=== PATIENT | female | born 1970 | race Caucasian/White ===

== ENCOUNTER 2023-02-27 09:43 | Outpatient (AMB) | payer BC, SELFPAY ==
--- NOTE | 2023-02-27 09:50 | MHC.OFFVIS ---
Intake Vital Signs 02/27/23 09:51 Height 5 ft 4 in Weight 180 lb 1.883 oz BMI 30.9 BP 126/88 Blood Pressure Location Rt brachial Position Sitting Pulse 70 Pulse Source Pulse Oximeter Pulse Oximetry (%) 97 Oxygen Delivery Method Room Air Intake Visit Reasons: RA Intake Note: Patient presents for follow up rheumatoid Allergies amoxicillin [From Augmentin] Adverse Reaction (Intermediate, Verified 02/23/23 10:29) Irregular heartbeat clavulanic acid [From Augmentin] Adverse Reaction (Intermediate, Verified 02/23/23 10:29) Irregular heartbeat escitalopram Adverse Reaction (Intermediate, Verified 02/23/23 10:29) Dizziness mirtazapine Adverse Reaction (Intermediate, Verified 02/23/23 10:29) Chest Pain Medication List - Last Reconciled 02/27/23 by Tracey Posadas MD etanercept (Enbrel SureClick) 50 mg subcut QWEEK fluoxetine 40 mg PO DAILY hydrochlorothiazide 25 mg PO DAILY hydroxyzine HCl 25 mg PO BID PRN isosorbide mononitrate ER 30 mg PO DAILY nitroglycerin 0.4 mg sublingual ONCE PRN tizanidine 4 mg PO BEDTIME trazodone 100 mg PO BEDTIME HPI HPI Comments History of Present Illness Details This is a 52-year-old female with seropositive RA who presents as a new patient. 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 She states that she was diagnosed with rheumatoid arthritis around 2009. She was on methotrexate and hydroxychloroquine at some point and she does not recall what happened with those. She has been on Enbrel since 2010 which is effective. Over the last few years patient has been spacing out her Enbrel injections. Currently she uses the Enbrel when she feels like she is having a flare. She uses it once every 3-4 weeks. She denies any history of DVT/PE. She is unaware of any family history of autoimmune rheumatic disease. She cannot think of any side effects related to Enbrel. Today patient states that she feels that her hands and feet are warm to touch. Her last flare was a week ago and she last took Enbrel Sunday of last week. [facility] Medical History Adjustment disorder Essential hypertension Inflammatory polyarthropathy Intervertebral disc disorder of lumbar region with myelopathy Rheumatoid arthritis Surgical History H/O nasal septoplasty History of back surgery Family History Mother Hypertension Stroke, Onset Age: 56 CHF (congestive heart failure) Father Hypertension Maternal Grandfather Myocardial infarction, Onset Age: 47 Family/Other Anxiety Breast cancer Social History Alcohol intake: current Alcohol intake frequency: 0-2 drinks per day Patient Tobacco Use Status: Current someday Tobacco user Female Reproductive History Menstrual Total pregnancies: 4 Number of Living Children: 2 Ab induced: 1 Ab spontaneous: 2 Review of Systems Const Reports fatigue, Reports headache(s) and Reports weakness Eyes Reports dry eyes and Reports itchy eyes ENT Reports headache(s) and Reports tinnitus GI Reports heartburn Musc Reports arthralgias and Reports stiffness Skin/Breast Reports alopecia and Reports unusual bruising Neuro Reports headache(s) and Reports weakness Psych Reports abnormal sleep pattern, Reports anxiety and Reports depression Endo Reports fatigue Aller/Immun Reports itchy eyes Physical Exam Vital Signs: Last Vital Signs Pulse 70 02/27/23 09:51 BP 126/88 02/27/23 09:51 Pulse Ox 97 02/27/23 09:51 Oxygen Delivery Method Room Air 02/27/23 09:51 BMI result Body Mass Index 30.9 Const General: cooperative, healthy appearing and comfortable Nutritional Appearance: overweight Orientation/consciousness: patient oriented x3 Limitations: no limitations HEENT Head: Yes normocephalic and Yes atraumatic Mouth: moist mucous membranes Resp Effort & Inspection: normal respiratory effort and able to speak in complete sentences Auscultation: clear to auscultation bilaterally Cardio Rate: regular rate Rhythm: regular rhythm Heart sounds: S1 normal heart sound present GI Inspection: No distended Palpation (GI): Soft to palpation and nontender Skin General skin exam: no rashes or lesions noted Neuro General: patient oriented x3 Extrem Other: No swollen or tender joints Mild warmth to palpation of both hands. Palmar erythema bilaterally normal range of motion of both elbows and shoulders Normal nailfold capillaroscopy Assessment & Plan Assessment & Plan (1) Rheumatoid arthritis: Comment: +RF+CCP MTX 2010 ineffective HCQ Enbrel 2010 effective Code(s): M06.9 - Rheumatoid arthritis, unspecified Qualifiers: Rheumatoid arthritis location: multiple sites Rheumatoid factor presence: with rheumatoid factor Qualified Code(s): M05.79 - Rheumatoid arthritis with rheumatoid factor of multiple sites without organ or systems involvement Plan: This is a 52-year-old female with seropositive RA who presents as a new patient. 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 Symptoms intermittently controlled on Enbrel every 3-4 weeks. Patient mentions that Enbrel is quite effective when patient uses it. Discussed the importance of disease control. Advised patient to take Enbrel weekly for the next 3 months, will re-evaluate next visit and will consider spacing out the Enbrel to every 10 days or every 2 weeks Labs today. Follow-up in 3 months Plan I spent 45 minutes reviewing patient's chart, evaluating patient, ordering diagnostic workup, counseling patient and documenting in the chart Orders: Orders Comprehensive Met. Panel Today M06.9 - Rheumatoid arthritis, unspecified C Reactive Protein Today M06.9 - Rheumatoid arthritis, unspecified Complete Blood Count Auto Diff Today M06.9 - Rheumatoid arthritis, unspecified Erythrocyte Sedimentation Rate Today M06.9 - Rheumatoid arthritis, unspecified Immunofixation Pnl, Serum Today M06.9 - Rheumatoid arthritis, unspecified Protein Electrophoresis, Serum Today M06.9 - Rheumatoid arthritis, unspecified Hepatitis A,B,C Profile Today Z11.59 - Encounter for screening for other viral diseases T Spot TB Today Z11.7 - Encounter for testing for latent tuberculosis infection Coding Level of Care Code New Pt Level 4 (09055) Diagnoses Rheumatoid arthritis M05.79 Rheumatoid arthritis location: multiple sites Rheumatoid factor presence: with rheumatoid factor
[2023-02-27 09:51] VITALS: BP 126/88; PULSE 70; O2SAT 97; BMI 30.9
== END 2023-02-27 10:31 | disposition home or self-care (01) ==
PROVIDERS: PCP Physician Assistant; Visit Provider Student in an Organized Health Care Education/Training Program
DX: M05.79 Rheumatoid arthritis with rheumatoid factor of multiple sites without organ or systems involvement (principal)
CPT/HCPCS: 99204

== ENCOUNTER → 2023-02-27 09:43 | Outpatient (BNVA) | payer BC, SELFPAY | PROVIDERS: PCP Physician Assistant; Visit Provider Student in an Organized Health Care Education/Training Program ==

== ENCOUNTER 2023-02-27 10:37 | Outpatient (REF) | payer BC, SELFPAY ==
[2023-02-27 13:09] LABS: MANUAL DIFF FLAG NO
[2023-02-27 13:11] LABS: Basophils Absolute Auto 0.1 X10*3/uL (0.0-0.2); Basophils Percent Auto 0.5 % (0-2); Eosinophils Absolute Auto 0.1 X10*3/uL (0.0-0.4); Eosinophils Percent Auto 1.4 % (0-4); Hematocrit 45.3 % (37.0-47.0); Hemoglobin 15.5 g/dl (12.0-16.0); Imm Gran Abs Auto 0.05 X10*3/uL (0.00-0.03); Imm Gran Pct Auto 0.5 % (0.0-0.4); Lymphocytes Absolute Auto 2.7 X10*3/uL (1.2-4.9); Lymphocytes Percent Auto 28.3 % (20-40); Mean Corpuscular HGB Conc 34.2 g/dl (31.0-35.0); Mean Corpuscular Hemoglobin 31.1 pg (27.0-33.0); Mean Corpuscular Volume 90.8 fL (80.0-98.0); Mean Platelet Volume 9.7 fL (9.4-12.3); Monocytes Absolute Auto 0.8 X10*3/uL (0.1-1.2); Monocytes Percent Auto 8.1 % (2-11); Neutrophils Absolute Auto 5.8 x10*3/uL (2.0-8.3); Neutrophils Percent Auto 61.2 % (45-73); Platelet Count 285 X10*3/uL (160-400); Red Blood Count 4.99 X10*6/uL (4.20-5.50); White Blood Count 9.5 X10*3/uL (4.8-10.8)
[2023-02-27 13:26] LABS: Alanine Aminotransferase 24 U/L (0-31); Albumin Level 4.3 g/dL (3.5-5.0); Alkaline Phosphatase 55 U/L (39-117); Anion Gap 12 (12-20); Aspartate Amino Transferase 19 U/L (5-31); Bilirubin Total 0.6 mg/dL (0.0-1.0); Blood Urea Nitrogen 12 mg/dL (9-16); C Reactive Protein 0.94 mg/dL (< or = 0.50); Carbon Dioxide 29 mmol/L (22-29); Chloride 102 mmol/L (96-108); Estimated Glomerular Filt Rate > 60; Glucose Random 91 mg/dL (60-115); Potassium 3.5 mmol/L (3.3-5.1); Sodium 139 mmol/L (135-145); Total Protein 7.7 g/dL (6.5-8.0)
[2023-02-27 13:55] LABS: Erythrocyte Sedimentation Rate 3 MM/HR (0-20)
[2023-02-28 04:07] LABS: HBS Num1 16.74 mIU/mL (0-7.99); HBc Num1 0.08 S/CO (0.00-0.79); HBsAGNum1 0.37 S/CO (0.00-0.99); Hepatitis A Antibody IgM 0.18 Index (0-0.79); Hepatitis B Core Antibody Nonreactive (Nonreactive); Hepatitis B Surface Antigen Negative (Negative); ~HepC Num1 0.17 S/CO (0.00-0.79); ~Hepatitis A Antibody IgM Nonreactive (Nonreactive); ~Hepatitis B Surface Antibody REACTIVE (Nonreactive); ~Hepatitis C Antibody Nonreactive (Nonreactive)
[2023-03-01 11:44] LABS: Prot Elec - Albumin 4.5 g/dL (3.8-4.8); Prot Elec - Alpha1 0.3 g/dL (0.2-0.3); Prot Elec - Alpha2 0.7 g/dL (0.5-0.9); Prot Elec - Beta 1 0.5 g/dL (0.4-0.6); Prot Elec - Beta 2 0.6 g/dL (0.2-0.5); Prot Elec - Total Protein 7.6 g/dL (6.1-8.1)
[2023-03-01 17:03] LABS: IgA 534 mg/dL (47-310); IgG 1047 mg/dL (600-1640); IgM 85 mg/dL (50-300)
[2023-03-01 22:49] LABS: TS Negative Control Passed; TS Panel A 0; TS Panel B 1; TS Positive Control Passed; TSpotTB Negative (Negative)
== END 2023-02-27 10:38 | disposition home or self-care (01) ==
LOC: HO.10HDL 10:37
PROVIDERS: Visit Provider Student in an Organized Health Care Education/Training Program
DX: Z11.59 Encounter for screening for other viral diseases (principal); Z11.7 Encounter for testing for latent tuberculosis infection; M06.9 Rheumatoid arthritis, unspecified; Z72.89 Other problems related to lifestyle
CPT/HCPCS: 36415; 80053; 82784; 84165; 85025; 85652; 86140; 86334; 86481; 86704; 86706; 86709; 86803; 87340

== ENCOUNTER 2023-06-01 09:33 | Outpatient (AMB) | payer BC, SELFPAY ==
[2023-06-01 09:40] VITALS: BP 120/76; PULSE 78; TEMP 36.4; O2SAT 96; BMI 31.9
--- NOTE | 2023-06-01 09:40 | MHC.OFFVIS ---
Intake Vital Signs 06/01/23 09:40 Height 5 ft 4 in Weight 185 lb 10.067 oz BMI 31.9 BP 120/76 Blood Pressure Location Rt brachial Position Sitting Pulse 78 Pulse Source Pulse Oximeter Temp 97.6 F Temp Source Skin Pulse Oximetry (%) 96 Oxygen Delivery Method Room Air Intake Visit Reasons: RA Intake Note: Pt last seen 02/27/23, presents today for follow up and test results. On Enbrel weekly through [facility]. 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 Accompanied by: Self / Same As Patient Allergies amoxicillin [From Augmentin] Adverse Reaction (Intermediate, Verified 06/01/23 09:43) Irregular heartbeat clavulanic acid [From Augmentin] Adverse Reaction (Intermediate, Verified 06/01/23 09:43) Irregular heartbeat escitalopram Adverse Reaction (Intermediate, Verified 06/01/23 09:43) Dizziness mirtazapine Adverse Reaction (Intermediate, Verified 06/01/23 09:43) Chest Pain Medication List - Last Reconciled 06/01/23 by Tracey Posadas MD atorvastatin 10 mg PO DAILY Enbrel SureClick (etanercept) 50 mg subcut QWEEK NS fluoxetine 40 mg PO DAILY hydrochlorothiazide 25 mg PO DAILY hydroxyzine HCl 25 mg PO BID PRN isosorbide mononitrate ER 30 mg PO DAILY nitroglycerin 0.4 mg sublingual ONCE PRN omeprazole 20 mg PO DAILY tizanidine 4 mg PO BEDTIME trazodone 100 mg PO BEDTIME HPI HPI Comments History of Present Illness Details 52-year-old female with seropositive RA returns for follow-up. She states that she has been doing her best to do the Enbrel weekly since last visit as discussed. She states however that last month she had COVID and she stopped using the Enbrel for 3 weeks. She recovered well. Patient states that she has had bilateral hip bursitis for years. She would receive steroid injections every 6 months to [address] Keen for years. Her most recent injection was more than a year ago. She stated that physical therapy was tried and was not helpful. She states that her hip bursitis is acting up and she would like an injection today in both hips. She has pain and stiffness in both heels, especially in the morning. She is doing well otherwise Initial history: This is a 52-year-old female with seropositive RA who presents as a new patient. 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 She states that she was diagnosed with rheumatoid arthritis around 2009. She was on methotrexate and hydroxychloroquine at some point and she does not recall what happened with those. She has been on Enbrel since 2010 which is effective. Over the last few years patient has been spacing out her Enbrel injections. Currently she uses the Enbrel when she feels like she is having a flare. She uses it once every 3-4 weeks. She denies any history of DVT/PE. She is unaware of any family history of autoimmune rheumatic disease. She cannot think of any side effects related to Enbrel. Today patient states that she feels that her hands and feet are warm to touch. Her last flare was a week ago and she last took Enbrel Sunday of last week. [facility] Medical History Greater trochanteric bursitis of both hips Adjustment disorder Essential hypertension Intervertebral disc disorder of lumbar region with myelopathy Inflammatory polyarthropathy Rheumatoid arthritis Surgical History History of back surgery H/O nasal septoplasty Family History Mother Hypertension Stroke, Onset Age: 56 CHF (congestive heart failure) Father Hypertension Maternal Grandfather Myocardial infarction, Onset Age: 47 Family/Other Anxiety Breast cancer Social History Alcohol intake: current Alcohol intake frequency: 0-2 drinks per day Patient Tobacco Use Status: Current someday Tobacco user [place] [facility] [place]ralgias, Denies joint swelling and Reports stiffness Physical Exam Vital Signs: Last Vital Signs Temp 97.6 F 06/01/23 09:40 Pulse 78 06/01/23 09:40 BP 120/76 06/01/23 09:40 Pulse Ox 96 06/01/23 09:40 Oxygen Delivery Method Room Air 06/01/23 09:40 BMI result Body Mass Index 31.9 Const General: cooperative, healthy appearing and comfortable Nutritional Appearance: overweight Orientation/consciousness: patient oriented x3 Limitations: no limitations HEENT Head: Yes normocephalic and Yes atraumatic Resp Effort & Inspection: normal respiratory effort and able to speak in complete sentences Auscultation: clear to auscultation bilaterally Cardio Rate: regular rate Rhythm: regular rhythm Heart sounds: S1 normal heart sound present GI Inspection: No distended Palpation (GI): Soft to palpation and nontender Skin General skin exam: no rashes or lesions noted Neuro General: patient oriented x3 Extrem Other: No swollen or tender joints Mild warmth to palpation of both hands. Palmar erythema bilaterally that blanches with pressure, normal range of motion of both elbows and shoulders Bilateral hip trochanteric bursa area tenderness with negative Mynor's test Normal nailfold capillaroscopy Office Procedures Joint Injection/Drain Joint Injection/Drain Details: Bilateral hip trochanteric bursa Injected: 40 mg of, Kenalog and other (2 mL of 1% lidocaine) Approach Used: other Procedure: The patient tolerated the procedure well and but had some pain with the injection Coding Details: With the patient's consent, the left lateral hip area was prepped with for Chloraprep and alcohol. Under a topical ethyl chloride spray the tender area over the trochanteric region was injected with 40 mg of Kenalog and 2 cc of 1% lidocaine. The patient tolerated the procedure with no adverse effects With the patient's consent, the right lateral hip area was prepped with for Chloraprep and alcohol. Under a topical ethyl chloride spray the tender area over the trochanteric region was injected with 40 mg of Kenalog and 2 cc of 1% lidocaine. The patient tolerated the procedure with no adverse effects CANDELARIO Maza was present in the room & assisting me for both procedures - Glenohumeral/Tronchanteric Bursa/Intraarticular (X2) Procedure code (CPT) selection complete Assessment & Plan Assessment & Plan (1) Rheumatoid arthritis: Comment: +RF+CCP MTX 2010 ineffective HCQ Enbrel 2010 effective Code(s): M06.9 - Rheumatoid arthritis, unspecified Qualifiers: Rheumatoid arthritis location: multiple sites Rheumatoid factor presence: with rheumatoid factor Qualified Code(s): M05.79 - Rheumatoid arthritis with rheumatoid factor of multiple sites without organ or systems involvement Plan: This is a 52-year-old female with seropositive RA who presents as a new patient. 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 Over the last 3 months patient has been doing Enbrel once weekly as discussed last visit. There is no active synovitis on exam today. Will check labs to evaluate disease activity. Labs today. Follow-up in 3 months (2) Greater trochanteric bursitis of both hips: Code(s): M70.61 - Trochanteric bursitis, right hip; M70.62 - Trochanteric bursitis, left hip Plan: Patient stated that she used to receive bilateral hip bursitis injections for years by Dr. Keen, usually every 6 months to 1 year. With patient's consent, both hips were injected with Kenalog today. Advised patient that she might not receive long lasting relief as much as she used to in the past. Advised patient to start doing home exercises for greater trochanteric bare syndrome as soon as she feels some relief. Plan I spent 35 minutes reviewing patient's chart, evaluating patient, ordering diagnostic workup, counseling patient and documenting in the chart Orders: Orders AMB Joint Injection/Aspiration Today M70.61 - Trochanteric bursitis, right hip, M70.62 - Trochanteric bursitis, left hip Complete Blood Count Auto Diff Today M06.9 - Rheumatoid arthritis, unspecified C Reactive Protein Today M06.9 - Rheumatoid arthritis, unspecified Immunofixation Pnl, Serum Today M06.9 - Rheumatoid arthritis, unspecified Protein Electrophoresis, Serum Today M06.9 - Rheumatoid arthritis, unspecified Comprehensive Met. Panel Today M06.9 - Rheumatoid arthritis, unspecified Erythrocyte Sedimentation Rate Today M06.9 - Rheumatoid arthritis, unspecified Coding Level of Care Code Est Pt Level 4 (78855) Diagnoses Rheumatoid arthritis involving multiple sites with positive rheumatoid factor M05.79 Rheumatoid arthritis location: multiple sites Rheumatoid factor presence: with rheumatoid factor Greater trochanteric bursitis of both hips M70.61; M70.62 CPT Codes Coding - Joint 7: 55488 - Glenohumeral/Tronchanteric Bursa/Intraarticular ([id number])
== END 2023-06-01 10:16 | disposition home or self-care (01) ==
PROVIDERS: PCP Physician Assistant; Visit Provider Student in an Organized Health Care Education/Training Program
DX: M05.79 Rheumatoid arthritis with rheumatoid factor of multiple sites without organ or systems involvement (principal); M70.61 Trochanteric bursitis, right hip; M70.62 Trochanteric bursitis, left hip
CPT/HCPCS: 20610; 99214

== ENCOUNTER → 2023-06-01 09:33 | Outpatient (BNVA) | payer BC, SELFPAY | PROVIDERS: PCP Physician Assistant; Visit Provider Student in an Organized Health Care Education/Training Program | DX: M05.79 Rheumatoid arthritis with rheumatoid factor of multiple sites without organ or systems involvement (principal); M70.61 Trochanteric bursitis, right hip; M70.62 Trochanteric bursitis, left hip | CPT/HCPCS: 20610 ==

== ENCOUNTER 2023-06-01 10:21 | Outpatient (REF) | payer BC, SELFPAY ==
[2023-06-01 13:22] LABS: MANUAL DIFF FLAG NO
[2023-06-01 13:39] LABS: Basophils Percent Auto 0.4 % (0-2); Eosinophils Absolute Auto 0.1 X10*3/uL (0.0-0.4); Eosinophils Percent Auto 1.2 % (0-4); Hematocrit 44.3 % (37.0-47.0); Hemoglobin 14.9 g/dl (12.0-16.0); Imm Gran Abs Auto 0.03 X10*3/uL (0.00-0.03); Imm Gran Pct Auto 0.3 % (0.0-0.4); Lymphocytes Absolute Auto 2.4 X10*3/uL (1.2-4.9); Mean Corpuscular HGB Conc 33.6 g/dl (31.0-35.0); Mean Corpuscular Hemoglobin 30.4 pg (27.0-33.0); Mean Corpuscular Volume 90.4 fL (80.0-98.0); Mean Platelet Volume 9.7 fL (9.4-12.3); Monocytes Absolute Auto 0.8 X10*3/uL (0.1-1.2); Monocytes Percent Auto 8.4 % (2-11); Neutrophils Absolute Auto 5.8 x10*3/uL (2.0-8.3); Neutrophils Percent Auto 63.7 % (45-73); Platelet Count 296 X10*3/uL (160-400); White Blood Count 9.1 X10*3/uL (4.8-10.8)
[2023-06-01 14:13] LABS: Erythrocyte Sedimentation Rate 7 MM/HR (0-20)
[2023-06-01 14:21] LABS: Alanine Aminotransferase 23 U/L (0-31); Albumin Level 4.4 g/dL (3.5-5.0); Alkaline Phosphatase 50 U/L (39-117); Anion Gap 13 (12-20); Aspartate Amino Transferase 20 U/L (5-31); Bilirubin Total 0.9 mg/dL (0.0-1.0); Blood Urea Nitrogen 11 mg/dL (9-16); C Reactive Protein 0.41 mg/dL (< or = 0.50); Calcium 9.3 mg/dL (8.4-10.2); Carbon Dioxide 29 mmol/L (22-29); Chloride 102 mmol/L (96-108); Estimated Glomerular Filt Rate > 60; Glucose Random 96 mg/dL (60-115); Potassium 3.5 mmol/L (3.3-5.1); Sodium 140 mmol/L (135-145); Total Protein 7.5 g/dL (6.5-8.0)
[2023-06-04 14:42] LABS: IgA 479 mg/dL (47-310); IgG 1033 mg/dL (600-1640); IgM 72 mg/dL (50-300)
[2023-06-04 17:48] LABS: Prot Elec - Albumin 4.3 g/dL (3.8-4.8); Prot Elec - Alpha1 0.3 g/dL (0.2-0.3); Prot Elec - Alpha2 0.7 g/dL (0.5-0.9); Prot Elec - Beta 1 0.5 g/dL (0.4-0.6); Prot Elec - Beta 2 0.5 g/dL (0.2-0.5); Prot Elec - Gamma 0.9 g/dL (0.8-1.7); Prot Elec - Total Protein 7.2 g/dL (6.1-8.1)
== END 2023-06-01 10:22 | disposition home or self-care (01) ==
LOC: HO.10HDL 10:21
PROVIDERS: Visit Provider Student in an Organized Health Care Education/Training Program
DX: M06.9 Rheumatoid arthritis, unspecified (principal)
CPT/HCPCS: 36415; 80053; 82784; 84165; 85025; 85652; 86140; 86334

== ENCOUNTER 2023-09-04 13:06 | Outpatient (AMB) | payer BC, SELFPAY ==
--- NOTE | 2023-09-04 13:26 | MHC.OFFVIS ---
Intake Vital Signs 09/04/23 13:29 Height 5 ft 4 in Weight 190 lb 14.725 oz BMI 32.8 BP 116/74 Blood Pressure Location Lt brachial Position Sitting Pulse 90 Pulse Source Pulse Oximeter Temp 97.2 F Temp Source Skin Intake Visit Reasons: RA Intake Note: Patient last seen 06/01/23 presents today for follow up. Reports she broke toe on left foot some time in June. Has been experiencing more right hip pain since then. 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 Accompanied by: Self / Same As Patient Allergies amoxicillin [From Augmentin] Adverse Reaction (Intermediate, Verified 06/01/23 09:43) Irregular heartbeat clavulanic acid [From Augmentin] Adverse Reaction (Intermediate, Verified 06/01/23 09:43) Irregular heartbeat escitalopram Adverse Reaction (Intermediate, Verified 06/01/23 09:43) Dizziness mirtazapine Adverse Reaction (Intermediate, Verified 06/01/23 09:43) Chest Pain Medication List - Last Reconciled 09/04/23 by Tracey Posadas MD atorvastatin 10 mg PO DAILY Enbrel SureClick (etanercept) 50 mg subcut QWEEK NS fluoxetine 40 mg PO DAILY hydrochlorothiazide 25 mg PO DAILY hydroxyzine HCl 25 mg PO BID PRN isosorbide mononitrate ER 30 mg PO DAILY nitroglycerin 0.4 mg sublingual ONCE PRN omeprazole 20 mg PO DAILY tizanidine 4 mg PO BEDTIME trazodone 100 mg PO BEDTIME HPI HPI Comments History of Present Illness Details 52-year-old female with seropositive RA returns for follow-up. Patient received bilateral hip trochanteric bursa steroid injections last visit with significant improvement, however on June 24, she missed a step and injured her left foot. She found that she fractured her left foot. It was treated conservatively. She was recently evaluated by her orthopedist and was told that it continues to heal. Her hip pain has been getting worse, especially on the right as she is compensating while she is walking. She is requesting bilateral hip cortisone injections. She also states that she has not been using her Enbrel regularly as she was worried about interference with bone healing. Initial history: This is a 52-year-old female with seropositive RA who presents as a new patient. 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 She states that she was diagnosed with rheumatoid arthritis around 2009. She was on methotrexate and hydroxychloroquine at some point and she does not recall what happened with those. She has been on Enbrel since 2010 which is effective. Over the last few years patient has been spacing out her Enbrel injections. Currently she uses the Enbrel when she feels like she is having a flare. She uses it once every 3-4 weeks. She denies any history of DVT/PE. She is unaware of any family history of autoimmune rheumatic disease. She cannot think of any side effects related to Enbrel. Today patient states that she feels that her hands and feet are warm to touch. Her last flare was a week ago and she last took Enbrel Sunday of last week. [facility] Medical History Greater trochanteric bursitis of both hips Adjustment disorder Essential hypertension Intervertebral disc disorder of lumbar region with myelopathy Inflammatory polyarthropathy Rheumatoid arthritis Surgical History History of back surgery H/O nasal septoplasty Family History Mother Hypertension Stroke, Onset Age: 56 CHF (congestive heart failure) Father Hypertension Maternal Grandfather Myocardial infarction, Onset Age: 47 Family/Other Anxiety Breast cancer Social History Alcohol intake: current Alcohol intake frequency: 0-2 drinks per day Patient Tobacco Use Status: Current someday Tobacco user Review of Systems [facility] [place] Reports arthralgias, Denies joint swelling and Reports stiffness Physical Exam Vital Signs: Last Vital Signs Temp 97.2 F 09/04/23 13:29 Pulse 90 09/04/23 13:29 BP 116/74 09/04/23 13:29 BMI result Body Mass Index 32.8 Const General: cooperative, healthy appearing and comfortable Nutritional Appearance: overweight Orientation/consciousness: patient oriented x3 Limitations: no limitations HEENT Head: Yes normocephalic and Yes atraumatic Resp Effort & Inspection: normal respiratory effort and able to speak in complete sentences Auscultation: clear to auscultation bilaterally Cardio Rate: regular rate Rhythm: regular rhythm Heart sounds: S1 normal heart sound present GI Inspection: No distended Palpation (GI): Soft to palpation and nontender Skin General skin exam: no rashes or lesions noted Neuro General: patient oriented x3 Extrem Other: No swollen or tender joints Left wrist pain with full flexion Bilateral hip trochanteric bursa area tenderness with negative Mynor's test Normal nailfold capillaroscopy Office Procedures Joint Injection/Drain Joint Injection/Drain Details: Right trochanteric bursa Left trochanteric bursa Prep: site was prepped using sterile technique and ethochloride spray was applied Injected: 40 mg of, Kenalog and other (2 mL of 1% lidocaine) Approach Used: other Procedure: The patient tolerated the procedure well Coding Details: With the patient's consent, the right lateral hip area was prepped with for Chloraprep and alcohol. Under a topical ethyl chloride spray the tender area over the trochanteric region was injected with 40 mg of Kenalog and 2 cc of 1% lidocaine. The patient tolerated the procedure with no adverse effects Then, the left lateral hip area was prepped with for Chloraprep and alcohol. Under a topical ethyl chloride spray the tender area over the trochanteric region was injected with 40 mg of Kenalog and 2 cc of 1% lidocaine. The patient tolerated the procedure with no adverse effects - Glenohumeral/Tronchanteric Bursa/Intraarticular Procedure code (CPT) selection complete (Trochanteric bursa injection X 2) Assessment & Plan Assessment & Plan (1) Rheumatoid arthritis: Comment: +RF+CCP MTX 2009 ineffective HCQ Enbrel 2010 effective Code(s): M06.9 - Rheumatoid arthritis, unspecified Qualifiers: Rheumatoid arthritis location: multiple sites Rheumatoid factor presence: with rheumatoid factor Qualified Code(s): M05.79 - Rheumatoid arthritis with rheumatoid factor of multiple sites without organ or systems involvement Plan: This is a 52-year-old female with seropositive RA who presents for follow-up. Having minor flares as she was not using Enbrel regularly worried about fracture healing. Advised patient to use her Enbrel regularly once weekly Labs before next visit in 4 months (2) Greater trochanteric bursitis of both hips: Code(s): M70.61 - Trochanteric bursitis, right hip; M70.62 - Trochanteric bursitis, left hip Plan: With patient's consent, bilateral hip trochanteric bursae were injected with Kenalog today Plan I spent 25 minutes reviewing patient's chart, evaluating patient, ordering diagnostic workup, counseling patient and documenting in the chart Orders: Orders C Reactive Protein 4 Months M06.9 - Rheumatoid arthritis, unspecified Erythrocyte Sedimentation Rate 4 Months M06.9 - Rheumatoid arthritis, unspecified AMB Joint Injection/Aspiration Today M70.61 - Trochanteric bursitis, right hip, M70.62 - Trochanteric bursitis, left hip Complete Blood Count Auto Diff 4 Months M06.9 - Rheumatoid arthritis, unspecified Comprehensive Met. Panel 4 Months M06.9 - Rheumatoid arthritis, unspecified Coding Level of Care Code Est Pt Level 4 (21574) Diagnoses Rheumatoid arthritis involving multiple sites with positive rheumatoid factor M05.79 Rheumatoid arthritis location: multiple sites Rheumatoid factor presence: with rheumatoid factor Greater trochanteric bursitis of both hips M70.61; M70.62 CPT Codes Coding - Joint 7: 14718 - Glenohumeral/Tronchanteric Bursa/Intraarticular ([id number])
[2023-09-04 13:29] VITALS: BP 116/74; PULSE 90; TEMP 36.2; BMI 32.8
== END 2023-09-04 14:07 | disposition home or self-care (01) ==
LOC: HO.RHE 13:06
PROVIDERS: PCP Physician Assistant; Visit Provider Student in an Organized Health Care Education/Training Program
DX: M05.79 Rheumatoid arthritis with rheumatoid factor of multiple sites without organ or systems involvement (principal); M70.61 Trochanteric bursitis, right hip; M70.62 Trochanteric bursitis, left hip
CPT/HCPCS: 20610; 99214

== ENCOUNTER → 2023-09-04 13:06 | Outpatient (BNVA) | payer BC, SELFPAY | PROVIDERS: PCP Physician Assistant; Visit Provider Student in an Organized Health Care Education/Training Program | DX: M05.79 Rheumatoid arthritis with rheumatoid factor of multiple sites without organ or systems involvement (principal); M70.61 Trochanteric bursitis, right hip; M70.62 Trochanteric bursitis, left hip | CPT/HCPCS: 20610; J3301 ==

== ENCOUNTER 2024-01-02 12:22 | Outpatient (REF) | payer BC, SELFPAY ==
[2024-01-02 13:23] LABS: MANUAL DIFF FLAG NO
[2024-01-02 13:47] LABS: Basophils Absolute Auto 0.1 X10*3/uL (0.0-0.2); Basophils Percent Auto 0.5 % (0-2); Eosinophils Absolute Auto 0.1 X10*3/uL (0.0-0.4); Hematocrit 43.6 % (37.0-47.0); Hemoglobin 14.6 g/dl (12.0-16.0); Imm Gran Abs Auto 0.05 X10*3/uL (0.00-0.03); Imm Gran Pct Auto 0.5 % (0.0-0.4); Lymphocytes Absolute Auto 2.6 X10*3/uL (1.2-4.9); Lymphocytes Percent Auto 27.8 % (20-40); Mean Corpuscular HGB Conc 33.5 g/dl (31.0-35.0); Mean Corpuscular Hemoglobin 30.9 pg (27.0-33.0); Mean Corpuscular Volume 92.2 fL (80.0-98.0); Mean Platelet Volume 9.7 fL (9.4-12.3); Monocytes Absolute Auto 0.8 X10*3/uL (0.1-1.2); Monocytes Percent Auto 8.9 % (2-11); Neutrophils Absolute Auto 5.8 x10*3/uL (2.0-8.3); Neutrophils Percent Auto 61.3 % (45-73); Platelet Count 279 X10*3/uL (160-400); Red Blood Count 4.73 X10*6/uL (4.20-5.50); Red Cell Distribution Width 13.3 % (11.0-16.0); White Blood Count 9.5 X10*3/uL (4.8-10.8)
[2024-01-02 14:00] LABS: Alanine Aminotransferase 32 U/L (0-31); Albumin Level 4.3 g/dL (3.5-5.0); Alkaline Phosphatase 57 U/L (39-117); Anion Gap 10 (12-20); Aspartate Amino Transferase 21 U/L (5-31); Bilirubin Total 0.3 mg/dL (0.0-1.0); Blood Urea Nitrogen 12 mg/dL (9-16); Calcium 9.7 mg/dL (8.4-10.2); Carbon Dioxide 31 mmol/L (22-29); Chloride 102 mmol/L (96-108); Estimated Glomerular Filt Rate > 60; Glucose Random 93 mg/dL (60-115); Potassium 3.9 mmol/L (3.3-5.1); Sodium 139 mmol/L (135-145); Total Protein 7.3 g/dL (6.5-8.0)
[2024-01-02 14:56] LABS: Erythrocyte Sedimentation Rate 6 MM/HR (0-20)
== END 2024-01-02 12:23 | disposition home or self-care (01) ==
LOC: HO.10HDL 12:22
PROVIDERS: Visit Provider Student in an Organized Health Care Education/Training Program
DX: M05.79 Rheumatoid arthritis with rheumatoid factor of multiple sites without organ or systems involvement (principal); M70.61 Trochanteric bursitis, right hip; M70.62 Trochanteric bursitis, left hip; Z79.620 Long term (current) use of immunosuppressive biologic
CPT/HCPCS: 20610; 36415; 80053; 85025; 85652; 86140; J3301

== ENCOUNTER 2024-01-02 12:29 | Outpatient (AMB) | payer BC, SELFPAY ==
--- NOTE | 2024-01-02 12:44 | A.OFFVIS_ITS ---
Vital Signs 01/02/24 12:50 Height 5 ft 4 in Weight 188 lb 14.978 oz BMI 32.4 BP 130/74 Blood Pressure Location Rt brachial Position Sitting Pulse 80 Pulse Source Pulse Oximeter Pulse Oximetry (%) 97 Oxygen Delivery Method Room Air Intake Visit Reasons: RA/CM Intake Note: Patient last seen 09/04/23 presents today for follow up and test results. Right hip pain, would like injection. Oxygen System Tester Required: No Accompanied by: Significant Other Allergies amoxicillin [From Augmentin] Adverse Reaction (Intermediate, Verified 01/02/24 12:51) Irregular heartbeat clavulanic acid [From Augmentin] Adverse Reaction (Intermediate, Verified 01/02/24 12:51) Irregular heartbeat escitalopram Adverse Reaction (Intermediate, Verified 01/02/24 12:51) Dizziness mirtazapine Adverse Reaction (Intermediate, Verified 01/02/24 12:51) Chest Pain Medication List - Last Reconciled 01/02/24 by Tracey Posadas MD atorvastatin 10 mg PO DAILY Enbrel SureClick (etanercept) 50 mg subcut QWEEK NS fluoxetine 40 mg PO DAILY hydrochlorothiazide 25 mg PO DAILY hydroxyzine HCl 25 mg PO BID PRN isosorbide mononitrate ER 30 mg PO DAILY nitroglycerin 0.4 mg sublingual ONCE PRN omeprazole 20 mg PO DAILY tizanidine 4 mg PO BEDTIME trazodone 100 mg PO BEDTIME HPI Comments Details: 52-year-old female with seropositive RA returns for follow-up. She remains on Enbrel but she does not take it regularly weekly as prescribed. She does 2 injections a month. She states that she has been having more aching on her ribs laterally, she has also been having pain outer aspect of both hips. She is requesting bilateral hip steroid injections. She has been trying to lose weight but has not been successful. Initial history: This is a 52-year-old female with seropositive RA who presents as a new patient. 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 She states that she was diagnosed with rheumatoid arthritis around 2009. She was on methotrexate and hydroxychloroquine at some point and she does not recall what happened with those. She has been on Enbrel since 2010 which is effective. Over the last few years patient has been spacing out her Enbrel injections. Currently she uses the Enbrel when she feels like she is having a flare. She uses it once every 3-4 weeks. She denies any history of DVT/PE. She is unaware of any family history of autoimmune rheumatic disease. She cannot think of any side effects related to Enbrel. Today patient states that she feels that her hands and feet are warm to touch. Her last flare was a week ago and she last took Enbrel Sunday of last week. [facility] Medical History Greater trochanteric bursitis of both hips Adjustment disorder Essential hypertension Intervertebral disc disorder of lumbar region with myelopathy Inflammatory polyarthropathy Rheumatoid arthritis Surgical History History of back surgery H/O nasal septoplasty Family History Mother Hypertension Stroke, Onset Age: 56 CHF (congestive heart failure) Father Hypertension Maternal Grandfather Myocardial infarction, Onset Age: 47 Family/Other Anxiety Breast cancer Social History Alcohol intake: current Alcohol intake frequency: 0-2 drinks per day Patient Tobacco Use Status: Current someday Tobacco user Female Reproductive History Menstrual Total pregnancies: 4 Number of Living Children: 2 Ab induced: 1 Ab spontaneous: 2 Review of Systems Musc Reports arthralgias, Denies joint swelling and Reports stiffness Physical Exam Vital Signs: Last Vital Signs Pulse 80 01/02/24 12:50 BP 130/74 01/02/24 12:50 Pulse Ox 97 01/02/24 12:50 Oxygen Delivery Method Room Air 01/02/24 12:50 BMI result Body Mass Index 32.4 Const General: cooperative, healthy appearing and comfortable Nutritional Appearance: overweight Orientation/consciousness: patient oriented x3 Limitations: no limitations HEENT Head: Yes normocephalic and Yes atraumatic Resp Effort & Inspection: normal respiratory effort and able to speak in complete sentences Auscultation: clear to auscultation bilaterally Cardio Rate: regular rate Rhythm: regular rhythm Heart sounds: S1 normal heart sound present GI Inspection: No distended Palpation (GI): Soft to palpation and nontender Skin General skin exam: no rashes or lesions noted Neuro General: patient oriented x3 Extrem Other: No swollen or tender joints Left wrist pain with full flexion Bilateral hip trochanteric bursa area tenderness with negative Mynor's test Normal nailfold capillaroscopy Office Procedures Joint Injection/Drain Joint Injection/Drain Details: Right hip trochanteric bursa Left hip trochanteric bursa Prep: site was prepped using sterile technique and ethochloride spray was applied Injected: 40 mg of, Kenalog and other (2 mL of 1% lidocaine) Approach Used: other Procedure: The patient tolerated the procedure well Coding Details: With the patient's consent, the right lateral hip area was prepped with for Chloraprep and alcohol. Under a topical ethyl chloride spray the tender area over the trochanteric region was injected with 40 mg of Kenalog and 2 cc of 1% lidocaine. then the left lateral hip area was prepped with for Chloraprep and alcohol. Under a topical ethyl chloride spray the tender area over the trochanteric region was injected with 40 mg of Kenalog and 2 cc of 1% lidocaine. The patient tolerated both procedures well with no immediate adverse effects - Glenohumeral/Tronchanteric Bursa/Intraarticular (Trochanteric bursa x2) Procedure code (CPT) selection complete Assessment & Plan Assessment & Plan (1) Rheumatoid arthritis: Comment: +RF+CCP MTX 2009 ineffective HCQ Enbrel 2010 effective Code(s): M06.9 - Rheumatoid arthritis, unspecified Category: Medical Qualifiers: Rheumatoid arthritis location: multiple sites Rheumatoid factor presen ce: with rheumatoid factor Qualified Code(s): M05.79 - Rheumatoid arthritis with rheumatoid factor of multiple sites without organ or systems involvement Plan: This is a 52-year-old female with seropositive RA who presents for follow-up. Patient is not consistent with her Enbrel weekly. She uses it approximately every other week. Worried about side effects. She has been having minor flare- ups affecting different joints. Labs show mildly elevated inflammatory markers. I had a long conversation with patient today about the risks and benefits of TNF inhibitors. Advised patient to stay compliant with Enbrel injection once weekly. Continue with Enbrel 50 mg weekly Labs before next visit in 4 months (2) Greater trochanteric bursitis of both hips: Code(s): M70.61 - Trochanteric bursitis, right hip; M70.62 - Trochanteric bursitis, left hip Category: Medical Plan: With patient's consent, bilateral hip trochanteric bursae were injected with K enalog today Plan I spent 25 minutes reviewing patient's chart, evaluating patient, ordering diagnostic workup, counseling patient and documenting in the chart Orders: Orders Complete Blood Count Auto Diff 4 Months M05. - Rheumatoid arthritis with rheumatoid factor of multiple sites without organ or systems involvement Comprehensive Met. Panel 4 Months M05.79 - Rheumatoid arthritis with rheumatoid factor of multiple sites without organ or systems involvement Erythrocyte Sedimentation Rate 4 Months M05. - Rheumatoid arthritis with rheumatoid factor of multiple sites without organ or systems involvement AMB Joint Injection/Aspiration Today M70.61 - Trochanteric bursitis, right hip, M70.62 - Trochanteric bursitis, left hip C Reactive Protein 4 Months M05.79 - Rheumatoid arthritis with rheumatoid factor of multiple sites without organ or systems involvement Coding Level of Care Code Est Pt Level 4 (23950) Diagnoses Rheumatoid arthritis involving multiple sites with positive rheumatoid factor 5.79 Rheumatoid arthritis location: multiple sites Rheumatoid factor presence: with rheumatoid factor Greater trochanteric bursitis of both hips M70.61; M70.62 CPT Codes Coding - Joint 7: 19598 - Glenohumeral/Tronchanteric Bursa/Intraarticular ([id number])
[2024-01-02 12:50] VITALS: BP 130/74; PULSE 80; O2SAT 97; BMI 32.4
== END 2024-01-02 13:31 | disposition home or self-care (01) ==
PROVIDERS: PCP Physician Assistant; Visit Provider Student in an Organized Health Care Education/Training Program
DX: M05.79 Rheumatoid arthritis with rheumatoid factor of multiple sites without organ or systems involvement (principal); M70.61 Trochanteric bursitis, right hip; M70.62 Trochanteric bursitis, left hip
CPT/HCPCS: 20610; 99214

== ENCOUNTER 2024-06-17 07:56 | Outpatient (REF) | payer BC, SELFPAY ==
[2024-06-17 11:10] LABS: MANUAL DIFF FLAG NO
[2024-06-17 11:13] LABS: Basophils Absolute Auto 0.1 X10*3/uL (0.0-0.2); Basophils Percent Auto 0.6 % (0-2); Eosinophils Absolute Auto 0.1 X10*3/uL (0.0-0.4); Eosinophils Percent Auto 1.3 % (0-4); Hematocrit 44.6 % (37.0-47.0); Hemoglobin 14.7 g/dl (12.0-16.0); Imm Gran Abs Auto 0.03 X10*3/uL (0.00-0.03); Imm Gran Pct Auto 0.3 % (0.0-0.4); Lymphocytes Absolute Auto 2.4 X10*3/uL (1.2-4.9); Lymphocytes Percent Auto 24.3 % (20-40); Mean Corpuscular Hemoglobin 30.4 pg (27.0-33.0); Mean Corpuscular Volume 92.3 fL (80.0-98.0); Mean Platelet Volume 9.7 fL (9.4-12.3); Monocytes Absolute Auto 1.1 X10*3/uL (0.1-1.2); Monocytes Percent Auto 10.8 % (2-11); Neutrophils Absolute Auto 6.2 x10*3/uL (2.0-8.3); Neutrophils Percent Auto 62.7 % (45-73); Platelet Count 282 X10*3/uL (160-400); Red Blood Count 4.83 X10*6/uL (4.20-5.50); Red Cell Distribution Width 13.8 % (11.0-16.0); White Blood Count 9.9 X10*3/uL (4.8-10.8)
[2024-06-17 11:24] LABS: Alanine Aminotransferase 31 U/L (0-31); Albumin Level 4.2 g/dL (3.5-5.0); Alkaline Phosphatase 56 U/L (39-117); Anion Gap 12 (12-20); Aspartate Amino Transferase 23 U/L (5-31); Bilirubin Total 0.3 mg/dL (0.0-1.0); Blood Urea Nitrogen 10 mg/dL (9-16); C Reactive Protein 1.01 mg/dL (< or = 0.50); Calcium 9.4 mg/dL (8.4-10.2); Carbon Dioxide 30 mmol/L (22-29); Chloride 102 mmol/L (96-108); Estimated Glomerular Filt Rate > 60; Glucose Random 98 mg/dL (60-115); Potassium 4.1 mmol/L (3.3-5.1); Sodium 140 mmol/L (135-145); Total Protein 7.2 g/dL (6.5-8.0)
[2024-06-17 11:53] LABS: Erythrocyte Sedimentation Rate 6 MM/HR (0-20)
== END 2024-06-17 07:57 | disposition home or self-care (01) ==
LOC: HO.10HDL 07:56
PROVIDERS: Visit Provider Student in an Organized Health Care Education/Training Program
DX: M05.79 Rheumatoid arthritis with rheumatoid factor of multiple sites without organ or systems involvement (principal); M70.61 Trochanteric bursitis, right hip; M70.62 Trochanteric bursitis, left hip
CPT/HCPCS: 20610; 36415; 80053; 85025; 85652; 86140; J2003; J3300

== ENCOUNTER 2024-06-17 08:06 | Outpatient (AMB) | payer BC, SELFPAY ==
--- NOTE | 2024-06-17 08:28 | MHC.OFFVIS ---
Vital Signs 06/17/24 08:34 Height 5 ft 4 in Weight 184 lb 8.43 oz BMI 31.7 BP 122/74 Blood Pressure Location Rt brachial Position Sitting Pulse 76 Pulse Source Pulse Oximeter Pulse Oximetry (%) 96 Oxygen Delivery Method Room Air Intake Visit Reasons: Ra/inj Intake Note: Patient presents for RA. Allergies amoxicillin [From Augmentin] Adverse Reaction (Intermediate, Verified 06/17/24 08:34) Irregular heartbeat clavulanic acid [From Augmentin] Adverse Reaction (Intermediate, Verified 06/17/24 08:34) Irregular heartbeat escitalopram Adverse Reaction (Intermediate, Verified 06/17/24 08:34) Dizziness mirtazapine Adverse Reaction (Intermediate, Verified 06/17/24 08:34) Chest Pain Medication List - Last Reconciled 06/17/24 by Tracey Posadas MD atorvastatin 10 mg PO DAILY Enbrel SureClick (etanercept) 50 mg subcut QWEEK NS fluoxetine 40 mg PO DAILY hydrochlorothiazide 25 mg PO DAILY hydroxyzine HCl 25 mg PO BID PRN isosorbide mononitrate ER 30 mg PO DAILY nitroglycerin 0.4 mg sublingual ONCE PRN omeprazole 20 mg PO DAILY tizanidine 4 mg PO BEDTIME trazodone 100 mg PO BEDTIME HPI Comments Details: 53-year-old female with seropositive RA returns for follow-up. She has been compliant with Enbrel once weekly. She states that she has been having pain in her low back, thighs,, most symptomatic is the outside of both hips. Requesting repeat steroid injections. She states that the injection helps for about 5 months. Initial history: This is a 52-year-old female with seropositive RA who presents as a new patient. 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 She states that she was diagnosed with rheumatoid arthritis around 2009. She was on methotrexate and hydroxychloroquine at some point and she does not recall what happened with those. She has been on Enbrel since 2010 which is effective. Over the last few years patient has been spacing out her Enbrel injections. Currently she uses the Enbrel when she feels like she is having a flare. She uses it once every 3-4 weeks. She denies any history of DVT/PE. She is unaware of any family history of autoimmune rheumatic disease. She cannot think of any side effects related to Enbrel. Today patient states that she feels that her hands and feet are warm to touch. Her last flare was a week ago and she last took Enbrel Sunday of last week. [facility] Medical History Greater trochanteric bursitis of both hips Adjustment disorder Essential hypertension Intervertebral disc disorder of lumbar region with myelopathy Inflammatory polyarthropathy Rheumatoid arthritis Surgical History History of back surgery H/O nasal septoplasty Family History Mother Hypertension Stroke, Onset Age: 56 CHF (congestive heart failure) Father Hypertension Maternal Grandfather Myocardial infarction, Onset Age: 47 Family/Other Anxiety Breast cancer Social History Alcohol intake: current Alcohol intake frequency: 0-2 drinks per day Patient Tobacco Use Status: Current someday Tobacco user Review of Systems [facility] [place] Reports arthralgias, Denies joint swelling and Reports stiffness Physical Exam Vital Signs: Last Vital Signs Pulse 76 06/17/24 08:34 BP 122/74 06/17/24 08:34 Pulse Ox 96 06/17/24 08:34 Oxygen Delivery Method Room Air 06/17/24 08:34 BMI result Body Mass Index 31.7 Const General: cooperative, healthy appearing and comfortable Nutritional Appearance: overweight Orientation/consciousness: patient oriented x3 Limitations: no limitations HEENT Head: Yes normocephalic and Yes atraumatic Resp Effort & Inspection: normal respiratory effort and able to speak in complete sentences Auscultation: clear to auscultation bilaterally Cardio Rate: regular rate Rhythm: regular rhythm Heart sounds: S1 normal heart sound present GI Inspection: No distended Palpation (GI): Soft to palpation and nontender Skin General skin exam: no rashes or lesions noted Neuro General: patient oriented x3 Extrem Other: No swollen or tender joints both hands and wrists Normal pain-free range of motion of elbows and shoulders Few fibromyalgia tender points Bilateral hip trochanteric bursa area tenderness with negative Mynor's test Normal nailfold capillaroscopy Office Procedures AMB Joint Injection/Aspiration Joint Injection/Aspiration Details: Bilateral hip trochanteric bursae Prep: site was prepped using aseptic technique, site was prepped using sterile technique and ethochloride spray was applied Injected: 40 mg of, Kenalog, with 1 mL of and 1% plain lidocaine Procedure: The patient tolerated the procedure well Coding Details: With the patient's consent, the right lateral hip area was prepped with Chloraprep. Under a topical ethyl chloride spray the tender area over the trochanteric region was injected with 40 mg of Kenalog and 1 cc of 1% lidocaine. Then, the left lateral hip area was prepped with Chloraprep. Under a topical ethyl chloride spray the tender area over the trochanteric region was injected with 40 mg of Kenalog and 1 cc of 1% lidocaine. The patient tolerated both procedures well with no apparent immediate adverse events. 13702 - Glenohumeral/Tronchanteric Bursa/Intraarticular (Trochanteric bursa x2) Procedure code (CPT) selection complete Office Meds Kenalog 40 mg/mL suspension for injection Performing Provider: Tracey Posadas MD [place] [facility] [place] Administered by: Tracey Posadas MD on 06/17/24 12:23 Dose Route Admin Location Dispensed Lot Number Expiration Date [facility] [employer] 80 mg intrabursal Right and left trochanter 2 mL [id number] 01/13/26 [address]-0 [employer] lidocaine (PF) 10 mg/mL (1 %) injection solution Performing Provider: Tracey Posadas MD Per[place] [facility] Administered by: Tracey Posadas MD on 06/17/24 12:23 Dose Route Admin Location Dispensed Lot Number Expiration Date [facility] [employer] 20 mg Infiltration 2 mL [id number] 10/14/26 47465-445-73 [facility] Assessment & Plan Assessment & Plan (1) Rheumatoid arthritis: Comment: +RF+CCP MTX 2009 ineffective HCQ Enbrel 2010 effective Code(s): M06.9 - Rheumatoid arthritis, unspecified Category: Medical Qualifiers: Rheumatoid arthritis location: multiple sites Rheumatoid factor presence: with rheumatoid factor Qualified Code(s): M05.79 - Rheumatoid arthritis with rheumatoid factor of multiple sites without organ or systems involvement Plan: This is a 53-year-old female with seropositive RA who presents for follow-up. Doing well on Enbrel 50 mg subcutaneously weekly Continue with Enbrel 50 mg weekly Labs before next visit in 6 months (2) Greater trochanteric bursitis of both hips: Code(s): M70.61 - Trochanteric bursitis, right hip; M70.62 - Trochanteric bursitis, left hip Category: Medical Plan: With patient's consent, bilateral hip trochanteric bursae were injected with Kenalog today (3) High risk medication use: Code(s): Z79.899 - Other intermediate (current) drug therapy Category: Medical Plan: Side effects of Enbrel were discussed with the patient in detail including increased risk of infection, demyelinating disease, reactivation of latent TB, possible increased risk of solid and skin tumors. Patient fully aware. Advised patient to seek medical care [facility] if patient has an infection and advised patient to stop the medication until the infection is resolved. Plan I spent 25 minutes reviewing patient's chart, evaluating patient, ordering diagnostic workup, counseling patient and documenting in the chart Orders: Orders AMB Joint Injection/Aspiration Today M70.61 - Trochanteric bursitis, right hip, M70.62 - Trochanteric bursitis, left hip Medications: New Kenalog (triamcinolone acetonide) 80 mg (2 mL) intrabursal ONCE 2 mL 0RF NS M70.61 - Trochanteric bursitis, right hip, M70.62 - Trochanteric bursitis, left hip lidocaine (PF) 20 mg (2 mL) Infiltration ONCE 2 mL 0RF M70.61 - Trochanteric bursitis, right hip, M70.62 - Trochanteric bursitis, left hip Coding Level of Care Code Est Pt Level 4 (00134) Complex EM visit Add On G2211 Diagnoses Rheumatoid arthritis involving multiple sites with positive rheumatoid factor M05.79 Rheumatoid arthritis location: multiple sites Rheumatoid factor presence: with rheumatoid factor Greater trochanteric bursitis of both hips M70.61; M70.62 High risk medication use Z79.899 CPT Codes Coding - Joint 7: 91509 - Glenohumeral/Tronchanteric Bursa/Intraarticular ([id number])
[2024-06-17 08:34] VITALS: BP 122/74; PULSE 76; O2SAT 96; BMI 31.7
== END 2024-06-17 09:50 | disposition home or self-care (01) ==
PROVIDERS: PCP Physician Assistant; Visit Provider Student in an Organized Health Care Education/Training Program
DX: M05.79 Rheumatoid arthritis with rheumatoid factor of multiple sites without organ or systems involvement (principal); M70.61 Trochanteric bursitis, right hip; M70.62 Trochanteric bursitis, left hip; Z79.899 Other long term (current) drug therapy
CPT/HCPCS: 20610; 99214

== ENCOUNTER 2024-12-16 08:19 | Outpatient (AMB) | payer BC, SELFPAY ==
--- NOTE | 2024-12-16 08:23 | MHC.OFFVIS ---
Vital Signs 12/16/24 08:30 Height 5 ft 4 in Weight 182 lb 15.739 oz BMI 31.4 BP 140/100 H Blood Pressure Location Rt brachial Position Sitting Pulse 73 Pulse Source Pulse Oximeter Pulse Oximetry (%) 97 Oxygen Delivery Method Room Air Intake Visit Reasons: RA Intake Note: Patient presents for RA follow up. Allergies amoxicillin [From Augmentin] Adverse Reaction (Intermediate, Verified 12/16/24 08:30) Irregular heartbeat clavulanic acid [From Augmentin] Adverse Reaction (Intermediate, Verified 12/16/24 08:30) Irregular heartbeat escitalopram Adverse Reaction (Intermediate, Verified 12/16/24 08:30) Dizziness mirtazapine Adverse Reaction (Intermediate, Verified 12/16/24 08:30) Chest Pain Medication List - Last Reconciled 12/16/24 by Brit Draper MD atorvastatin 10 mg PO DAILY Enbrel SureClick (etanercept) 50 mg subcut QWEEK NS fluoxetine 40 mg PO DAILY hydrochlorothiazide 25 mg PO DAILY hydroxyzine HCl 25 mg PO BID PRN isosorbide mononitrate ER 30 mg PO DAILY nitroglycerin 0.4 mg sublingual ONCE PRN omeprazole 20 mg PO DAILY tizanidine 4 mg PO BEDTIME trazodone 100 mg PO BEDTIME HPI Comments Details: Patient is a 54 y.o. female with HLD, HTN c/b CAD, depression, and seropositive RA here today for follow up Interval History: Patient last seen 06/17/[address] Posadas. At that time she was following up for her seropositive rheumatoid arthritis on Enbrel monotherapy and doing well. She is complaining of bilateral trochanteric bursitis and was requesting steroid injections. Today, Patient doing well overall States that sometimes she does her Enbrel once every 2 weeks but does note that when she does that she gets a mild flare of her disease that resolves when she takes her Enbrel Would like bilateral trochanteric bursa injections today Rheumatologic History: Initial history by Dr. Posadas: This is a 52-year-old female with seropositive RA who presents as a new patient. Her previous technologist development left the practice. She states that she was diagnosed with rheumatoid arthritis around 2009. She was on methotrexate and hydroxychloroquine at some point and she does not recall what happened with those. She has been on Enbrel since 2010 which is effective. Over the last few years patient has been spacing out her Enbrel injections. Currently she uses the Enbrel when she feels like she is having a flare. She uses it once every 3-4 weeks. She denies any history of DVT/PE. She is unaware of any family history of autoimmune rheumatic disease. She cannot think of any side effects related to Enbrel. Today patient states that she feels that her hands and feet are warm to touch. Her last flare was a week ago and she last took Enbrel Sunday of last week. Current Rheumatology Medication(s): Enbrel 50mg SC weekly [facility] Medical History Greater trochanteric bursitis of both hips Adjustment disorder Essential hypertension Intervertebral disc disorder of lumbar region with myelopathy Inflammatory polyarthropathy Rheumatoid arthritis Surgical History History of back surgery H/O nasal septoplasty Family History Mother Hypertension Stroke, Onset Age: 56 CHF (congestive heart failure) Father Hypertension Maternal Grandfather Myocardial infarction, Onset Age: 47 Family/Other Anxiety Breast cancer Social History Alcohol intake: current Alcohol intake frequency: 0-2 drinks per day Patient Tobacco Use Status: Current someday Tobacco user Review of Systems Const Details: Review of Systems Constitutional: Denies fever, chills, weight loss ENT: Denies vision changes, eye pain or eye redness, dental caries, dry mouth GI: Denies nausea, vomiting, diarrhea, abdominal pain, change in BM Pulm: Denies SOB, MALLORY, hemoptysis, wheezing Cards: Denies chest pain, palpitations Skin: Denies Raynaud's, rash, nail changes, photosensitivity, [employer]ING: Denies headaches, weakness, paresthesias, recurrent falls MSK: as per HPI All other systems reviewed and are unremarkable except noted above Physical Exam Vital Signs: Last Vital Signs Pulse 73 12/16/24 08:30 BP 140/100 H 12/16/24 08:30 Pulse Ox 97 12/16/24 08:30 Oxygen Delivery Method Room Air 12/16/24 08:30 BMI result Body Mass Index 31.4 Vital signs reviewed Physical Examination CONSTITUITIONAL Patient alert and cooperative. Well appearing and in no apparent painful distress HEENT Conjunctiva and sclera clear. ?Pupils equal round and reactive to light. ?No lymphadenopathy. ? CHEST/RESPIRATORY SYSTEM Normal respiratory effort and able to speak in complete sentences. ?Clear to auscultation bilaterally. ?No crackles, rales, rhonchi, wheezes heard. CARDIAC SYSTEM Regular rate and rhythm. ?S1 and S2 heard no murmurs. ?Radial pulses intact bilaterally MSK Hands: ?Able to make a fist. No synovitis noted to the MCPs, PIPs or DIPs. ?No tenderness to palpation of these joints. No deformities noted. ? Wrists: ?Full range of motion at the wrists without pain. ?No tenderness to palpation or synovitis noted to the wrists. Elbows: Full range of motion without pain. No tenderness, weakness, swelling, increased warmth or erythema. Shoulders: Full range of active range of motion without pain. No tenderness, weakness, swelling, increased warmth or erythema. Hips: Full range of motion without pain. Hip bursa: Bilateral tenderness to palpation Knees: ?Full range of motion. ?No tenderness, swelling, increased warmth or erythema.?No effusion or crepitations Ankles: Full range of motion. ?No tenderness, swelling, increased warmth or erythema.? Feet: ?Negative squeeze test. ?No tenderness to palpation or swelling of the MTPs. Tender points:?No tenderness to palpation of the bilateral trapezius, supraspinatus, anterior costochondral junctions, bilateral gluteal areas, bilateral suboccipital muscle insertions SKIN Skin intact without rashes. Office Procedures AMB Joint Injection/Aspiration Joint Injection/Aspiration Details: Procedure was explained to the patient and consent was obtained. ? The area of interest was identified and confirmed with patient. ?This was subsequently cleaned with chlorhexidine x3. ? The area was then anesthetized using ethyl chloride spray. 40 mg Kenalog with 1 cc 1% lidocaine was injected without issue. ?Minimal to no bleeding. ?Patient tolerated procedure. Primary Site: other (right greater trochanteric bursa) Prep: site was prepped using aseptic technique and ethochloride spray was applied Injected: 40 mg of, Kenalog, with 1 mL of and 1% plain lidocaine Procedure: The patient tolerated the procedure well Coding 76448 - Glenohumeral/Tronchanteric Bursa/Intraarticular Procedure code (CPT) selection complete AMB Joint Injection/Aspiration Joint Injection/Aspiration Details: Procedure was explained to the patient and consent was obtained. ? The area of interest was identified and confirmed with patient. ?This was subsequently cleaned with chlorhexidine x3. ? The area was then anesthetized using ethyl chloride spray. 40 mg Kenalog with 1 cc 1% lidocaine was injected without issue. ?Minimal to no bleeding. ?Patient tolerated procedure. Primary Site: other (left greater trochanteric bursa) Injected: 40 mg of, Kenalog, with 1 mL of and 1% plain lidocaine Procedure: The patient tolerated the procedure well Coding 22555 - Glenohumeral/Tronchanteric Bursa/Intraarticular Procedure code (CPT) selection complete Office Meds lidocaine (PF) 10 mg/mL (1 %) injection solution Performing Provider: Brit Draper MD Performing Location[place] [facility] [place] [facility] Administered by: Brit Draper MD on 12/16/24 09:04 Dose Route Admin Location Dispensed Lot Number Expiration Date [facility] [employer] 1 mL Infiltration right greater trochanteri 2 mL [id number] 09/13/26 80820-709-29 [employer] Kenalog 40 mg/mL suspension for injection Performing Provider: Brit Draper MD Performing Location: [facility] [place] [facility] Administered by: Brit Draper MD on 12/16/24 09:04 Dose Route Admin Location Dispensed Lot Number Expiration Date [facility] [employer] 40 mg intrabursal right greater trochanteri 1 mL [id number] 10/14/26 9570-4216-39 [facility] lidocaine (PF) 10 mg/mL (1 %) injection solution Performing Provider: Brit Draper MD Performing Location: [facility] [place] [facility] Administered by: Brit Draper MD on 12/16/24 09:04 Dose Route Admin Location Dispensed Lot Number Expiration Date [facility] [employer] 1 mL Infiltration left greater trochanteric 2 mL [id number] 09/13/26 95781-659-53 [employer] Kenalog 40 mg/mL suspension for injection Performing Provider: Brit Draper MD Performing Location: [facility] [place] [facility] Administered by: Brit Draper MD on 12/16/24 09:04 Dose Route Admin Location Dispensed Lot Number Expiration Date [facility] [employer] 40 mg intrabursal left greater trochanteric 1 mL [id number] 10/14/26 5954-1282-48 [facility] Results Reviewed Results Reviewed: Lab mamadou 10/07/2024 WBC 12.71 HB 14.5 Platelets 320 Infectious serologies 02/27/23 10:45 Hepatitis A IgM Ab Nonreactive Hep Bs Antigen Negative Hep Bs Antibody REACTIVE Hep B Core Total Ab Nonreactive Hepatitis C Ab (EIA) Nonreactive TB Test (T-Spot) Com Negative Assessment & Plan Assessment & Plan (1) Rheumatoid arthritis: Comment: +RF+CCP MTX 2009 ineffective HCQ Enbrel 2010 effective Code(s): M06.9 - Rheumatoid arthritis, unspecified Category: Medical Qualifiers: Rheumatoid arthritis location: multiple sites Rheumatoid factor presence: with rheumatoid factor Qualified Code(s): M05.79 - Rheumatoid arthritis with rheumatoid factor of multiple sites without organ or systems involvement Plan: #Seropositive RA Patient is a 54-year-old female with seropositive rheumatoid arthritis here today up. Currently on Enbrel monotherapy and in remission. Plan - Enbrel 50mg SC weekly - Labs today: CBC, CMP, ESR, CRP, Hepatitis panel and T spot - RTC 6 months - Labs before visit: CBC, CMP, ESR, CRP (2) Greater trochanteric bursitis of both hips: Code(s): M70.61 - Trochanteric bursitis, right hip; M70.62 - Trochanteric bursitis, left hip Category: Medical Plan: #Bilateral greater trochanteric bursitis S/p steroid injections today Exercises given (3) Encounter for monitoring of etanercept therapy: Code(s): Z51.81 - Encounter for therapeutic drug level monitoring; Z79.620 - retirement (current) use of immunosuppressive biologic Plan: #Long-term Use of TNF Inhibitors: Etanercept Discussed with the patient the benefits and risks of TNF inhibitors for the management of the rheumatic condition Benefits include reduce pain, maintenance of remission and reduction of flares as well as ?progression of the disease Risks include injection sites/infusion reactions, serious infections (such as bacterial infections, opportunistic infections), malignancy, delaminating syndromes, autoimmune phenomena, CHF exacerbations, palmar plantar psoriasis and cytopenias Recommended rotating injection sites, and holding medication during and for up to 1 week after resolution of a febrile illness or open skin wound Plan I spent 25 minutes reviewing the record and labs, taking a history, examining the patient, discussing the treatment plan, ordering diagnostic work up and documenting in the medical record Orders: Orders Complete Blood Count Auto Diff 6 Months M05.79 - Rheumatoid arthritis with rheumatoid factor of multiple sites without organ or systems involvement Erythrocyte Sedimentation Rate 6 Months M05.79 - Rheumatoid arthritis with rheumatoid factor of multiple sites without organ or systems involvement Comprehensive Met. Panel Today M05.79 - Rheumatoid arthritis with rheumatoid factor of multiple sites without organ or systems involvement C Reactive Protein Today M05.79 - Rheumatoid arthritis with rheumatoid factor of multiple sites without organ or systems involvement Hepatitis A,B,C Profile Today M05.79 - Rheumatoid arthritis with rheumatoid factor of multiple sites without organ or systems involvement Erythrocyte Sedimentation Rate Today M05.79 - Rheumatoid arthritis with rheumatoid factor of multiple sites without organ or systems involvement AMB Joint Injection/Aspiration Today M70.61 - Trochanteric bursitis, right hip, M70.62 - Trochanteric bursitis, left hip AMB Joint Injection/Aspiration Today M70.61 - Trochanteric bursitis, right hip, M70.62 - Trochanteric bursitis, left hip Comprehensive Met. Panel 6 Months M05.79 - Rheumatoid arthritis with rheumatoid factor of multiple sites without organ or systems involvement C Reactive Protein 6 Months M05.79 - Rheumatoid arthritis with rheumatoid factor of multiple sites without organ or systems involvement Complete Blood Count Auto Diff Today M05.79 - Rheumatoid arthritis with rheumatoid factor of multiple sites without organ or systems involvement T Spot TB Today M05.79 - Rheumatoid arthritis with rheumatoid factor of multiple sites without organ or systems involvement Medications: New Kenalog (triamcinolone acetonide) 40 mg intrabursal ONCE 1 mL 0RF NS M70.61 - Trochanteric bursitis, right hip, M70.62 - Trochanteric bursitis, left hip Kenalog (triamcinolone acetonide) 40 mg intrabursal ONCE 1 mL 0RF NS M70.61 - Trochanteric bursitis, right hip, M70.62 - Trochanteric bursitis, left hip lidocaine (PF) 1 mL Infiltration ONCE 2 mL 0RF M70.61 - Trochanteric bursitis, right hip, M70.62 - Trochanteric bursitis, left hip lidocaine (PF) 1 mL Infiltration ONCE 2 mL 0RF M70.61 - Trochanteric bursitis, right hip, M70.62 - Trochanteric bursitis, left hip Refilled Enbrel SureClick (etanercept) 50 mg subcut QWEEK 4 mL 5RF NS M05.79 - Rheumatoid arthritis with rheumatoid factor of multiple sites without organ or systems involvement Coding Level of Care Code Est Pt Level 3 (40854) Complex EM visit Add On G2211 Diagnoses Rheumatoid arthritis involving multiple sites with positive rheumatoid factor M05.79 Rheumatoid arthritis location: multiple sites Rheumatoid factor presence: with rheumatoid factor Greater trochanteric bursitis of both hips M70.61; M70.62 Encounter for monitoring of etanercept therapy Z51.81; Z79.620 CPT Codes Coding - Joint 7: 21498 - Glenohumeral/Tronchanteric Bursa/Intraarticular ([id number]) Coding - Joint 7: 12621 - Glenohumeral/Tronchanteric Bursa/Intraarticular ([id number])
[2024-12-16 08:30] VITALS: BP 140/100; PULSE 73; O2SAT 97; BMI 31.4
--- OUTSIDE RECORDS SUMMARY | 2024-12-16 08:30 | XMS_ITS | Patient Health Record ---
[facility] [address] Support Name Relationship Address Phone Trina Forman Guarantor Unknown [phone] Reason For Referral No Information Plan Of Treatment No Information Insurance Providers Payer Name Payer Address Payer Phone Subscriber Number Group Number Insured Name Patient Relationship to Insured Coverage Start Date Coverage End Date [employer] OF [facility] [address] [place] [address] [id number] Trina Forman Self - patient is the insured
== END 2024-12-16 09:03 | disposition home or self-care (01) ==
LOC: HO.RHE 08:20
PROVIDERS: PCP Physician Assistant; Visit Provider Student in an Organized Health Care Education/Training Program
DX: M05.79 Rheumatoid arthritis with rheumatoid factor of multiple sites without organ or systems involvement (principal); M70.61 Trochanteric bursitis, right hip; M70.62 Trochanteric bursitis, left hip; Z51.81 Encounter for therapeutic drug level monitoring; Z79.620 Long term (current) use of immunosuppressive biologic
CPT/HCPCS: 20610; 99214

== ENCOUNTER → 2024-12-16 08:19 | Outpatient (BNVA) | payer BC, SELFPAY | PROVIDERS: PCP Physician Assistant; Visit Provider Student in an Organized Health Care Education/Training Program | DX: M70.61 Trochanteric bursitis, right hip (principal); M70.62 Trochanteric bursitis, left hip | CPT/HCPCS: 20610; J2003; J3300 ==

== ENCOUNTER 2024-12-16 09:20 | Outpatient (REF) | payer BC, SELFPAY ==
[2024-12-16 10:45] LABS: MANUAL DIFF FLAG NO
[2024-12-16 11:17] LABS: Basophils Percent Auto 0.5 % (0-2); Eosinophils Absolute Auto 0.1 X10*3/uL (0.0-0.4); Eosinophils Percent Auto 1.6 % (0-4); Imm Gran Abs Auto 0.04 X10*3/uL (0.00-0.03); Imm Gran Pct Auto 0.5 % (0.0-0.4); Lymphocytes Absolute Auto 2.2 X10*3/uL (1.2-4.9); Lymphocytes Percent Auto 28.3 % (20-40); Mean Corpuscular HGB Conc 33.3 g/dl (31.0-35.0); Mean Corpuscular Hemoglobin 30.7 pg (27.0-33.0); Mean Corpuscular Volume 92.1 fL (80.0-98.0); Mean Platelet Volume 9.8 fL (9.4-12.3); Monocytes Absolute Auto 0.8 X10*3/uL (0.1-1.2); Monocytes Percent Auto 9.6 % (2-11); Neutrophils Absolute Auto 4.7 x10*3/uL (2.0-8.3); Neutrophils Percent Auto 59.5 % (45-73); Platelet Count 292 X10*3/uL (160-400); Red Blood Count 4.56 X10*6/uL (4.20-5.50); Red Cell Distribution Width 14.1 % (11.0-16.0); White Blood Count 7.9 X10*3/uL (4.8-10.8)
[2024-12-16 11:57] LABS: Alanine Aminotransferase 34 U/L (0-31); Albumin Level 4.2 g/dL (3.5-5.0); Alkaline Phosphatase 52 U/L (39-117); Anion Gap 14 (12-20); Aspartate Amino Transferase 29 U/L (5-31); Bilirubin Total 0.8 mg/dL (0.0-1.0); Blood Urea Nitrogen 10 mg/dL (9-16); Carbon Dioxide 27 mmol/L (22-29); Chloride 104 mmol/L (96-108); Estimated Glomerular Filt Rate > 60; Glucose Random 100 mg/dL (60-115); Potassium 3.5 mmol/L (3.3-5.1); Sodium 141 mmol/L (135-145)
[2024-12-16 12:08] LABS: Erythrocyte Sedimentation Rate 6 MM/HR (0-20); HBsAGNum1 0.27 S/CO (0.00-0.99); Hepatitis A Antibody IgM 0.17 Index (0-0.79); Hepatitis B Core Antibody Nonreactive (Nonreactive); Hepatitis B Surface Antigen Negative (Negative); ~HepC Num1 0.19 S/CO (0.00-0.79); ~Hepatitis A Antibody IgM Nonreactive (Nonreactive); ~Hepatitis B Surface Antibody REACTIVE (Nonreactive); ~Hepatitis C Antibody Nonreactive (Nonreactive)
[2024-12-19 08:19] LABS: TS Negative Control Passed; TS Panel A 0; TS Panel B 4; TS Positive Control Passed; TSpotTB Negative (Negative)
== END 2024-12-16 09:21 | disposition home or self-care (01) ==
LOC: HO.10HDL 09:20
PROVIDERS: Visit Provider Student in an Organized Health Care Education/Training Program
DX: M05.79 Rheumatoid arthritis with rheumatoid factor of multiple sites without organ or systems involvement (principal)
CPT/HCPCS: 36415; 80053; 85025; 85652; 86140; 86481; 86704; 86706; 86709; 86803; 87340